=== PATIENT | male | born 1965 | race Caucasian/White ===

== ENCOUNTER 2016-09-13 12:52 | Observation (INO) | payer BC ==
[~2016-09-13] VITALS: Ht 161.3 cm; Wt 79.8 kg
[~2016-09-13 12:52] MED LIST: ASPI81TA28 PO; HYDR-5688 PO; LPR25 PO; NITR0.4S UT; ROSU40TA PO
--- NOTE | 2016-09-13 13:43 | EMERGENCY ROOM VISIT NOTE ---
History Report prepared by Saúl: Angel Chung Under the Supervision of: Dr. Lois Matt D.O. First contact with patient: 13:28 Chief Complaint: TACHYCARDIA Stated Complaint: HEART BEATING FAST/PALPITATIONS, INDIGESTION Nursing Triage Summary: Pt reportsd palpitations and feelign like his heart was racing around 1130. Denies history of irregular heart beat. Pt reports indigestion. Denies any other symptoms. History of Present Illness The patient is a 51 year old male who presents to the Emergency Room with complaints of persistent tachycardia beginning about 2 hours ago. 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 He notes he felt fine prior to the time lock expert. He indicates that his has happened before but only for a couple of seconds. The patient reports he also felt dizzy at times which is not worsened with sitting or standing, as well as some sinus pressure and nausea. He denies any chest pain or shortness of breath. However, the patient did describe indigestion like chest pressure. The patient reports taking his medications regularly, and is on a blood thinner. He adds that he had a CABG in 2001. Source of History: patient Onset: about 2 hours ago Position: chest Quality: other (tachycardia) Timing: other (persistent) Associated Symptoms: + nausea, No SOB, No chest pain Note: Patient reports also having dizziness and sinus pressure. Review of Systems See HPI for pertinent positives & negatives. A total of 10 systems reviewed and were otherwise negative. Past Medical & Surgical Medical Problems: (1) History of atrial fibrillation (2) non cardiac chest pain Surgical Problems: (1) History of coronary artery bypass graft Family History No pertinent family history stated. Social History Smoking Status: Former Smoker Alcohol Use: none Drug Use: none Marital Status: Housing Status: lives with family Occupation Status: employed Current/Historical Medications Scheduled Aspirin (Aspirin Ec), 325 MG PO DAILY Metoprolol Tartrate (Lopressor), 25 MG PO BID Nitroglycerin (Nitrostat), 0.4 MG UT PRN Rosuvastatin Calcium (Crestor), 40 MG PO HS Allergies Coded Allergies: No Known Allergies (Verified , 09/13/16) Physical Exam Vital Signs Date Time Temp Pulse Resp B/P Pulse Ox O2 Delivery O2 Flow Rate FiO2 09/13/16 16:30 96 110/71 09/13/16 15:12 130 18 108/72 96 Room Air 09/13/16 14:13 94 18 114/75 96 Room Air 09/13/16 14:07 102 09/13/16 13:22 97 Room Air 09/13/16 12:58 36.8 106 20 117/75 95 Room Air Physical Exam HEENT: Head - normocephalic and atraumatic Pupils are equal, round, and reactive to light. Extraocular eye muscles are intact, and sclera are anicteric. Nose - moist nasal mucosa without discharge. Mouth - moist buccal mucosa. Oropharynx is nonerythematous and there is no tonsillar exudate or edema noted. Neck: Supple; no JVD, nuchal rigidity, cervical lymphadenopathy, or auscultated bruits. Heart: Tachycardic rate and irregularly irregular rhythm. There is a normal S1 and S2 with no murmurs, clicks, or gallops appreciated. Lungs: Clear to auscultation bilaterally with no wheezes, rales, or rhonchi. Abdomen: Soft, completely nontender, nondistended, with good bowel sounds. There are no palpable pulsatile masses or hepatosplenomegaly. There is no guarding, rigidity, or rebound noted. Extremities: No evidence of cyanosis, clubbing, or edema. There are easily palpable peripheral pulses. Skin: warm and dry with good turgor and no rashes. Medical Decision & Procedures ER Provider Diagnostic Interpretation: Radiology results as stated below per my review and the radiologist's interpretation: CHEST ONE VIEW PORTABLE FINDINGS: There are median sternotomy wires and clips from bypass grafting. Lung volumes are at the lower limits of normal. There is no evidence of pulmonary edema. Linear left basilar opacity is suggestive of atelectasis. No pneumothorax or pleural effusion is present. IMPRESSION: 1. No acute cardiopulmonary findings. 2. Linear left basilar opacity suggestive of atelectasis. Electronically signed by: Jonathan Smith M.D. 09/13/2016 2:10 PM Dictated Date/Time: 09/13/2016 2:09 PM Laboratory Results 09/13/16 13:19 09/13/16 13:19 Test 09/13/16 13:19 Red Blood Count 4.96 M/uL (4.7-6.1) Mean Corpuscular Volume 92.5 fL (80-100) Mean Corpuscular Hemoglobin 31.3 pg (25-34) Mean Corpuscular Hemoglobin Concent 33.8 g/dl (32-36) RDW Standard Deviation 47.3 fL (36.4-46.3) RDW Coefficient of Variation 14.0 % (11.5-14.5) Mean Platelet Volume 9.9 fL (7.4-10.4) Prothrombin Time 9.8 SECONDS (9.0-12.0) Prothromb Time International Ratio 0.9 (0.9-1.1) Anion Gap 10.0 mmol/L (3-11) Est Creatinine Clear Calc Drug Dose 82.7 ml/min Estimated GFR () 102.3 Estimated GFR (Non- 88.3 BUN/Creatinine Ratio 18.3 (10-20) Estimated Average Glucose 128 mg/dl Hemoglobin A1c 6.1 % (4.5-5.6) Calcium Level 8.3 mg/dl (8.5-10.1) Total Creatine Kinase 127 U/L (39-308) Creatine Kinase MB 0.5 ng/ml (0.5-3.6) Creatine Kinase MB Ratio 0.4 (0-3.0) Pro-B-Type Natriuretic Peptide 108 pg/ml (0-900) Thyroid Stimulating Hormone (TSH) 1.250 uIu/ml (0.300-4.500) Laboratory results per my review. Medications Administered Medications (Trade) Dose Ordered Sig/Demarcus Route Start Time Stop Time Status Last Admin Dose Admin Heparin Sodium/ Dextrose (Heparin 25,000 Unit/500ml D5W) 25,000 unit STK-MED ONCE .ROUTE 09/13/16 15:50 09/13/16 15:51 DC 09/13/16 15:58 25,000 UNIT Procedure Medications Ordered: 1521: Ordered Heparin Sodium/Dextrose 1 ea N/A. ECG Indication: tachycardia Rate (beats per minute): 133 Rhythm: atrial fibrillation (with RVR) Findings: no acute ischemic change, no ectopy ED Course 1331: Past medical records reviewed. The patient was evaluated in room B7. A complete history and physical exam was performed. An IV lock was initiated and labs were drawn as above. A twelve-lead EKG was obtained as described above. The patient had chest x-ray as described above. 1415: The patient's heart rate had come down on its own but he remains in A. fib. He is sleeping at this time. 1510: I reassessed the patient. His heart rate is down but he is still in afib. I will put him on a heparin drip. 1520: Discussed the patient's case with Dr. Lau. The patient will be evaluated for further management. Medical Decision The patient is a 51 year old male who presents to the Emergency Room with complaints of persistent tachycardia beginning about 2 hours ago. Differential Diagnoses: GERD, cardiac ischemia, atrial fibrillation with RVR, CHF, and hyperthyroidism. Laboratory Interpretations: Normal WBC, stable H&H; normal renal function; glucose of 136; normal TSH; negative cardiac enzymes; normal coags. This is a 51-year-old male patient with a history of previous coronary artery bypass grafting years ago. He developed some palpitations and indigestion today. He presented to the emergency department with new onset A. fib with RVR. Cardiac enzymes were negative. There are no signs of ischemia. The heart rate came down on its own but he remains in atrial fibrillation. He was heparinized. When the patient presented years ago with cardiac ischemia and had to undergo CABG, his presenting symptom was indigestion. There was concern that he would require further cardiac evaluation. The patient's indigestion did not return while he was here in the emergency department. Consults Time Called: 1509 Consulting Physician: Dr. Lua, [facility] [place] Returned Call: 1520 Discussed the patient's case with Dr. Lua. The patient will be evaluated for further management. Impression Primary Impression: Atrial fibrillation with RVR Additional Impression: Chest pressure Scribe Attestation The scribe's documentation has been prepared under my direction and personally reviewed by me in its entirety. I confirm that the note above accurately reflects all work, treatment, procedures, and medical decision making performed by me. Departure Information Dispostion Being Evaluated By Hospitalist Referrals Criss Zamora C.R.NRadha (PCP) Patient Instructions [facility] Problem Qualifiers
[2016-09-13 13:45] LABS: HEMATOCRIT 45.9 % (42-52); MEAN CELL VOLUME 92.5 fL (80-100); MEAN CORPUSCULAR HEMOGLOBIN 31.3 pg (25-34); MEAN CORPUSCULAR HGB CONC 33.8 g/dl (32-36); MEAN PLATELET VOLUME 9.9 fL (7.4-10.4); PLATELET COUNT 253 K/uL (130-400); RED BLOOD COUNT 4.96 M/uL (4.7-6.1)
[2016-09-13 14:09] LABS: BLOOD UREA NITROGEN 18 mg/dl (7-18); BUN/CREATININE RATIO 18.3 (10-20); CALCIUM 8.3 mg/dl (8.5-10.1); CARBON DIOXIDE 28 mmol/L (21-32); CHLORIDE 107 mmol/L (98-107); CREATININE 0.98 mg/dl (0.60-1.40); GLUCOSE 136 mg/dl (70-99); POTASSIUM 4.1 mmol/L (3.5-5.1); SODIUM 145 mmol/L (136-145)
[2016-09-13] MEDS ORDERED: ASPI325T39 PO (14:09)
--- NOTE | 2016-09-13 14:11 | DIAGNOSTIC IMAGING REPORT ---
CHEST ONE VIEW PORTABLE CLINICAL HISTORY: Atrial fibrillation with rapid ventricular response. COMPARISON STUDY: Chest radiograph February 24, 2012. FINDINGS: There are median sternotomy wires and clips from bypass grafting. Lung volumes are at the lower limits of normal. There is no evidence of pulmonary edema. Linear left basilar opacity is suggestive of atelectasis. No pneumothorax or pleural effusion is present. IMPRESSION: 1. No acute cardiopulmonary findings. 2. Linear left basilar opacity suggestive of atelectasis. Electronically signed by: Jonathan Smith M.D. 09/13/2016 2:10 PM Dictated Date/Time: 09/13/2016 2:09 PM
[2016-09-13 14:13] LABS: INR 0.9 (0.9-1.1); PROTHROMBIN TIME (PATIENT) 9.8 SECONDS (9.0-12.0)
[2016-09-13 14:20] LABS: CKMB/CK RATIO 0.4 (0-3.0)
[2016-09-13] MEDS ORDERED: HEPARIN 25000 UNIT/500 ML D5W ONE (15:50)
[2016-09-13] MEDS ORDERED: MoRPHine SULFATE 2 MG/ML CARP IV PRN (17:15)
[2016-09-13] MEDS ORDERED: MAGNESIUM HYDROXIDE SUSP 30 ML UDC PO PRN (17:15)
[2016-09-13] MEDS ORDERED: NITROGLYCERIN 0.4 MG SL PER TAB CHARGE SL PRN (17:15)
[2016-09-13] MEDS ORDERED: ONDANSETRON INJ 2 MG/ML 2 ML VIAL IV PRN (17:15)
[2016-09-13] MEDS ORDERED: ACETAMINOPHEN 325 MG TAB PO PRN (17:15)
[2016-09-13] MEDS ORDERED: NITROGLYCERIN 0.4 MG SL PER TAB CHARGE UT SCH (17:15)
[2016-09-13] MEDS ORDERED: GI COCKTAIL PO PRN (17:30)
--- NOTE | 2016-09-13 17:38 | History and Physical ---
History & Physical Date & Time of Service: Sep 13, 2016 at 17:19 Chief Complaint: Heart Beating Fast/Palpitations, Indigestion Primary Care Physician: Criss Zamora C.R.N.P History of Present Illness Source: patient 51 y/o M c/o of heartburn and palpitations. Pt states he was having a usual day today. 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 He states he drank a bottle of fruit punch gatorade too quickly and about 15 minutes later had intense heartburn. He then noted that his heart was fluttering. It did not radiate into his UE or jaw. No SOB. When it did not resolve, he came to the ED. Pt notes that he is tired now, but feels otherwise fine. He has had no limitation in his daily work or yard work. Pt does have hx of heartburn/indigestion, but not for some time. Of note, pt had a bypass in 2001 and at that time his sx were severe heartburn. Pt had a cath in 2011 that they report as neg, no stents placed. Pt states he has had heart fluttering before, but does not think he was dx with afib at any time. He does take aspirin 325mg, but this has been since his CT. Pt denies fever, abd pain, n/v/c/d, LE pain or swelling. ROS as noted above, otherwise neg. Past Medical/Surgical History Bypass 2001 HLD Social History Smoking Status: Former Smoker Smokeless Tobacco Use: Yes Alcohol Use: occasionally (with camping trips) Drug Use: none Marital Status: Housing status: lives with family Occupational Status: employed Immunizations History of Influenza Vaccine: No History of Tetanus Vaccine?: No History of Pneumococcal: No History of Hepatitis B Vaccine: Yes Multi-Drug Resistant Organisms History of MDRO: No Allergies Coded Allergies: No Known Allergies (Verified , 09/13/16) Home Medications Scheduled Aspirin (Aspirin Ec), 325 MG PO DAILY Metoprolol Tartrate (Lopressor), 25 MG PO BID Nitroglycerin (Nitrostat), 0.4 MG UT PRN Rosuvastatin Calcium (Crestor), 40 MG PO HS Physical Exam Vital Signs Date Time Temp Pulse Resp B/P Pulse Ox O2 Delivery O2 Flow Rate FiO2 09/13/16 15:12 130 18 108/72 96 Room Air 09/13/16 14:13 94 18 114/75 96 Room Air 09/13/16 14:07 102 09/13/16 13:22 97 Room Air 09/13/16 12:58 36.8 106 20 117/75 95 Room Air General Appearance: WD/WN, no apparent distress Head: normocephalic, atraumatic Respiratory/Chest: normal breath sounds, no respiratory distress Cardiovascular: no edema, + pertinent finding (regular rate, irregular rhythm) Abdomen/GI: non tender, soft Extremities/Musculoskelatal: no calf tenderness, no pedal edema Neurologic/Psych: alert, normal mood/affect Skin: normal color, warm/dry Diagnostics Laboratory Results Results Past 24 Hours Test 09/13/16 13:19 Range/Units White Blood Count 8.00 4.8-10.8 K/uL Red Blood Count 4.96 4.7-6.1 M/uL Hemoglobin 15.5 14.0-18.0 g/dL Hematocrit 45.9 42-52 % Mean Corpuscular Volume 92.5 80-100 fL Mean Corpuscular Hemoglobin 31.3 25-34 pg Mean Corpuscular Hemoglobin Concent 33.8 32-36 g/dl RDW Standard Deviation 47.3 36.4-46.3 fL RDW Coefficient of Variation 14.0 11.5-14.5 % Platelet Count 253 130-400 K/uL Mean Platelet Volume 9.9 7.4-10.4 fL Prothrombin Time 9.8 9.0-12.0 SECONDS Prothromb Time International Ratio 0.9 0.9-1.1 Activated Partial Thromboplast Time 24.7 21.0-31.0 SECONDS Partial Thromboplastin Ratio 1.0 Sodium Level 145 136-145 mmol/L Potassium Level 4.1 3.5-5.1 mmol/L Chloride Level 107 98-107 mmol/L Carbon Dioxide Level 28 21-32 mmol/L Anion Gap 10.0 3-11 mmol/L Blood Urea Nitrogen 18 7-18 mg/dl Creatinine 0.98 0.60-1.40 mg/dl Est Creatinine Clear Calc Drug Dose 82.7 ml/min Estimated GFR () 102.3 Estimated GFR (Non- 88.3 BUN/Creatinine Ratio 18.3 10-20 Random Glucose 136 70-99 mg/dl Calcium Level 8.3 8.5-10.1 mg/dl Total Creatine Kinase 127 39-308 U/L Creatine Kinase MB 0.5 0.5-3.6 ng/ml Creatine Kinase MB Ratio 0.4 0-3.0 Troponin I < 0.015 0-0.045 ng/ml Pro-B-Type Natriuretic Peptide 108 0-900 pg/ml Thyroid Stimulating Hormone (TSH) 1.250 0.300-4.500 uIu/ml Diagnostic Radiology CXR neg for acute Normal EKG Impression Assessment and Plan 51 y/o M who was admitted for observation on 09/13 for chest pain. Chest pain: ACS vs GI vs related to afib Hx of severe heartburn feeling with CT in 2001 Trop neg x1, serials pending CXR neg for acute CBC, PRP WNL ECHO pending Lipids, A1c pending Pt follows with Dr. Calvillo if needed GI cocktail PRN Afib: Pt reports hx of fluttering in the past, however is unsure if he carries this dx Initially with RVR, now rate controlled spontaneously Monitor on heparin gtt for now, CHADS score is 1 for HTN if ECHO is neg and A1c WNL Metoprolol PRN ECHO pending Takes aspirin 325mg [employer], will continue HLD: continue statin Smokeless tobacco use: Declines nicotine patch No interest in cessation. "It's the only bad thing I do and I don't want to quit!" Other: Full code Heparin gtt for DVT proph AHA diet Level of Care Telemetry Resuscitation Status FULL RESUSCITATION VTE Prophylaxis VTE Risk Assessment Done? Y/N: Yes Risk Level: Low
[2016-09-13] MEDS ORDERED: METOPROLOL TARTRATE 1 MG/ML VIAL IV PRN (17:45)
[2016-09-13 19:33] VITALS: BP 104/62; PULSE 96; TEMP 36.8; O2SAT 95
[2016-09-13 19:41] VITALS: BP 104/62; PULSE 96; TEMP 36.8; O2SAT 95; Ht 161.3 cm; Wt 79.8 kg
[2016-09-13 19:54] LABS: CHOLESTEROL 264 mg/dl (0-200); CHOLESTEROL/HDL RATIO 5.6; HDL CHOLESTEROL 47 mg/dl; LDL CHOLESTEROL CALCULATED 190 mg/dl; TRIGLYCERIDES 135 mg/dl (0-150); VERY LOW DENSITY LIPOPROT CALC 27 mg/dl
[2016-09-13 20:00] VITALS: O2SAT 95
[2016-09-13] MEDS: NITROGLYCERIN OINT 2% 1GM PACKET EXT SCH (20:00)
[2016-09-13] MEDS ORDERED: ALUMINUM/MAGNESIUM SUSP 72 ML, LIDOCAINE HCL 2% VISCOUS SOLN 24 ML, BARCODE IDENTIFIER ... PO PRN ×2 (20:00)
[2016-09-13] MEDS: METOPROLOL TARTRATE 25 MG TAB PO SCH (20:47)
[2016-09-13] MEDS ORDERED: ROSUVASTATIN CALCIUM 20 MG TAB PO SCH (21:00)
[2016-09-13] MEDS: HEPARIN 25,000 UNIT/500ML D5W 500 ML IV PRN (22:52)
[2016-09-13 23:45] VITALS: BP 97/65; PULSE 58; TEMP 36.7; O2SAT 96
[2016-09-14 00:35] LABS: PARTIAL THROMBOPLASTIN RATIO 1.5
[2016-09-14] MEDS: HEPARIN 25,000 UNIT/500ML D5W 500 ML IV PRN (00:58)
[2016-09-14] MEDS ORDERED: IV FLUIDS COMPLETED PRN (01:00)
[2016-09-14] MEDS ORDERED: HEPARIN IV BOLUS 5,000 UNIT in SYRINGE 0 ML IV ONE (01:00)
[2016-09-14] MEDS: NITROGLYCERIN OINT 2% 1GM PACKET EXT SCH ×2 (02:00→08:35)
[2016-09-14 04:28] VITALS: BP 93/64; PULSE 56; TEMP 36.4; O2SAT 94
[2016-09-14 06:36] LABS: ESTIMATED AVERAGE GLUCOSE 128 mg/dl; HA1C FLAG Normal (Normal)
[2016-09-14] MEDS ORDERED: PERFLUTREN LIPID MICROSPHERE (DEFINITY) IV ONE (07:02)
[2016-09-14 07:22] VITALS: BP 113/72; PULSE 77; TEMP 36.6; O2SAT 95
[2016-09-14 08:00] LABS: PARTIAL THROMBOPLASTIN RATIO 2.9
[2016-09-14] MEDS: METOPROLOL TARTRATE 25 MG TAB PO SCH (08:35)
--- NOTE | 2016-09-14 08:52 | ECHOCARDIOGRAM REPORT ---
*NOTICE TO RECEIVING REPUBLICAN AGENCY This information is strictly Confidential and protected under [place] law. [place] law prohibits you from making any further disclosure of this information unless further disclosure is expressly permitted by the written consent of the person to whom it pertains or is authorized by law. A general authorization for the release of medical or other information is not sufficient for this purpose. Hospital accepts no responsibility if the information is made available to any other person, INCLUDING THE PATIENT. Interpretation Summary * Name: LAUREL DE LEÓN Study Date: 09/14/2016 06:29 AM BP: 113/72 mmHg * Patient Location: .[facility]\S\N284\S\2 HR: 82 * : 1965 (M/d/yyyy) Gender: Male Height: 63 in * Age: 51 yrs Ethnicity: [place] Weight: 177 lb * Ordering Physician: Rosita Lua * Referring Physician: Self, Referred * Performed By: Mayda Gamboa RDCS * * Reason For Study: AFIB * BSA: 1.8 m2 * Grossly normal valvular structure and function. * -- Conclusions -- * The left ventricle is normal in size. * Left ventricular systolic function is normal. * Ejection Fraction = 65-70%. * The right ventricular systolic function is normal. * The left atrium is borderline dilated. * The right atrium is borderline dilated. * Grossly normal valvular structure and function. Procedure Details * A contrast injection of Definity was performed to improve assessment of LV function. * Contrast was injected into an intravenous site in the left arm. * One vial of Definity ultrasound contrast was diluted in normal saline to a total volume of 10 ml. A total of '2' ml of solution was administered during imaging. * Lot # [id number] of Definity utilized for procedure. * Expiration date SEP 01. * The attending nurse who injected the contrast agent was TOM ROCHA RN. Left Ventricle * The left ventricle is normal in size. * There is normal left ventricular wall thickness. * Ejection Fraction = 65-70%. * Left ventricular systolic function is normal. * The left ventricular wall motion is normal. Right Ventricle * The right ventricle is normal size. * The right ventricular systolic function is normal. Atria * The left atrium is borderline dilated. * The right atrium is borderline dilated. * The interatrial septum is intact with no evidence for an atrial septal defect. Mitral Valve * The mitral valve is not well visualized. * Significant mitral regurgitation is absent. Tricuspid Valve * The tricuspid valve anatomy is normal. * Significant tricuspid regurgitation is absent. Aortic Valve * The aortic valve is tricuspid. The leaflet thickness if normal. There is no aortic stenosis, and no significant insufficiency. * Aortic stenosis is absent. * There is no significant aortic regurgitation. Pulmonic Valve * The pulmonary valve is inadequately visualized, but the Doppler data is adequate for interpretation. * There is no significant pulmonary regurgitation. Great Vessels * The aortic root and proximal ascending aorta are normal sized. Pericardium/Pleural * There is no pericardial effusion. MMode 2D Measurements and Calculations IVSd 1.5 cm IVSs 1.7 cm LVIDd 3.8 cm LVIDs 2.3 cm LVPWd 1.4 cm LVPWs 1.9 cm IVS/LVPW 1.1 FS 40.5 % EDV(Teich) 61.9 ml ESV(Teich) 17.3 ml EF(Teich) 72.0 % EDV(cubed) 54.9 ml ESV(cubed) 11.5 ml EF(cubed) 79.0 % % IVS thick 11.8 % % LVPW thick 40.4 % LV mass(C)d 201.5 grams LV mass(C)dI 109.8 grams/m\S\2 LV mass(C)s 157.9 grams LV mass(C)sI 86.0 grams/m\S\2 SV(Teich) 44.6 ml SI(Teich) 24.3 ml/m\S\2 SV(cubed) 43.3 ml SI(cubed) 23.6 ml/m\S\2 Ao root diam 3.1 cm Ao root area 7.4 cm\S\2 LA dimension 4.0 cm LA/Ao 1.3 LVAd ap4 23.4 cm\S\2 LVLd ap4 7.1 cm EDV(MOD-sp4) 65.0 ml LVAs ap4 12.6 cm\S\2 LVLs ap4 6.1 cm ESV(MOD-sp4) 21.5 ml EF(MOD-sp4) 66.9 % LVAd ap2 17.1 cm\S\2 LVLd ap2 6.2 cm EDV(MOD-sp2) 38.8 ml LVAs ap2 8.5 cm\S\2 LVLs ap2 5.3 cm ESV(MOD-sp2) 11.8 ml EF(MOD-sp2) 69.6 % SV(MOD-sp4) 43.5 ml SI(MOD-sp4) 23.7 ml/m\S\2 SV(MOD-sp2) 27.0 ml SI(MOD-sp2) 14.7 ml/m\S\2 Doppler Measurements and Calculations MV E max eli 79.5 cm/sec MV dec time 0.15 sec Ao V2 max 112.9 cm/sec Ao max PG 5.1 mmHg Ao max PG (full) 2.2 mmHg LV V1 max PG 2.9 mmHg LV V1 max 85.9 cm/sec
[2016-09-14] MEDS ORDERED: ASPIRIN 325 MG ECTAB PO SCH (09:00)
--- NOTE | 2016-09-14 11:34 | Discharge Instructions ---
Discharge Instructions Date of Service September 14, 2016. Admission Reason for Admission: Chest Pressure Discharge Discharge Diagnosis / Problem: paroxysmal Atrial fibrillation Discharge Goals Goal(s): Diagnostic testing, Therapeutic intervention Activity Recommendations Activity Limitations: resume your previous activity . Current Hospital Diet Patient's current hospital diet: AHA Diet (Heart Healthy) Discharge Diet Recommended Diet: AHA Diet (Heart Healthy) Pending Studies Studies pending at discharge: no Laboratory Results Hemoglobin A1c Test 09/13/16 13:19 Range/Units Estimated Average Glucose 128 mg/dl Hemoglobin A1c 6.1 H 4.5-5.6 % Lipid Panel Test 09/13/16 19:15 Range/Units Triglycerides Level 135 0-150 mg/dl Cholesterol Level 264 H 0-200 mg/dl HDL Cholesterol 47 mg/dl Cholesterol/HDL Ratio 5.6 LDL Cholesterol, Calculated 190 mg/dl Medical Emergencies . Who to Call and When: Medical Emergencies: If at any time you feel your situation is an emergency, please call 911 immediately. . Non-Emergent Contact Non-Emergency issues call your: Primary Care Provider . . "Provider Documentation" section prepared by Washington Avitia. . VTE Core Measure Inpt VTE Proph given/why not?: Unfractionated heparin SQ
[2016-09-14 11:40] VITALS: BP 102/67; PULSE 72; TEMP 36.7; O2SAT 94
[2016-09-14 11:43] VITALS: BP 102/67; PULSE 72; TEMP 36.7; O2SAT 94
[2016-09-14] MEDS ORDERED: NITROGLYCERIN 2% OINTMENT 30GM TUBE EXT SCH (14:00)
--- NOTE | 2016-09-14 14:53 | CARDIOLOGY CONSULTATION ---
DATE OF CONSULTATION: 09/14/2016 REFERRING PHYSICIAN: Dr. Washington Avitia. REASON FOR CONSULTATION: Atrial fibrillation. HISTORY OF PRESENT ILLNESS: This is a 51-year-old male gentleman who has arteriosclerotic vascular disease including previous coronary artery bypass surgery in 2001 and carotid endarterectomy in 2013. The patient did follow with Dr. Calvillo until approximately 3 years ago when he was lost to follow up. He has been doing well and has been well cared for by his primary care physician during that time. He was admitted with atrial fibrillation. He drank a bottle of fruit punch Gatorade and he felt uncomfortable and developed fluttering in his chest. He presented with atrial fibrillation into our ER. He was given additional beta sharon and started on heparin. This morning, he spontaneously converted to normal sinus rhythm where he has remained. He has no complaints presently and feels well. He actually would like to go home. His cardiac troponins have been negative x3 since admission. ALLERGIES: No known medical allergies. PAST MEDICAL HISTORY: Per the history of chief complaint, the patient has early atherosclerotic vascular disease and underwent coronary artery bypass surgery in 2001 and then carotid endarterectomy in 2013. According to records in 2011, he had a cardiac catheterization that showed his bypass grafts to be patent. He has no history of diabetes or hypertension. SOCIAL HISTORY: The patient is a former smoker, but continues to use snuff. He is and lives with his family. FAMILY MEDICAL HISTORY: Noncontributory. REVIEW OF SYSTEMS: A 10-point review of systems is negative except for the history of chief complaint. PHYSICAL EXAMINATION: GENERAL: He is alert and oriented in no acute distress. VITAL SIGNS: Blood pressure is 110/70 and pulse is regular at 70 beats per minute. He is in sinus rhythm. HEENT: He is normocephalic. Pupils are equal and reactive to light. Extraocular muscles are intact bilaterally. NECK: The neck veins are flat. Carotids have good upstrokes bilaterally without bruits. Thyroid is nonpalpable. RESPIRATORY: Breath sounds equal bilaterally and clear to auscultation. CARDIOVASCULAR: Heart has a regular rhythm. Normal S1 and S2. No S3 or S4. No cardiac rubs or murmurs. GASTROINTESTINAL: Abdomen is soft and nontender without organomegaly. EXTREMITIES: Free of edema, digit clubbing, or cyanosis. NEUROLOGIC: Grossly intact. SKIN: Warm to touch. LYMPH NODES: Negative to palpation. IMPRESSION: 1. Paroxysmal atrial fibrillation. 2. Previous coronary artery bypass surgery and left carotid endarterectomy. RECOMMENDATIONS: The patient has been well controlled with beta blockers and aspirin for many years. I believe his BOAZ score is 0 as he does not admit to having hypertension. He has also never had diabetes or congestive heart failure. I think the risks versus benefits would favor keeping him on aspirin at this time. He will also continue his metoprolol and I encouraged him to have followup with us even if it is on an annual basis. He can take an extra dose of metoprolol as needed if he develops heart palpitations or arrhythmias again. We will have followup with him as an outpatient and I will make arrangements for that. IRVIN
--- NOTE | 2016-09-14 16:35 | Discharge Summary ---
Discharge Summary Date of Service September 14, 2016. Discharge Summary Admission Date: Sep 13, 2016 at 17:18 Discharge Date: September 14, 2016 Discharge Disposition: Home Principal Diagnosis: afib with spontaneus conversion to nsr Immunizations: Have You Had Influenza Vaccine: No History of Tetanus Vaccine?: No History of Pneumococcal: No History of Hepatitis B Vaccine: Yes Consultations: Dr [facility] for [facility] Cardiology Medication Reconciliation Continued Medications: Aspirin (Aspirin Ec) 325 Mg Tab 325 MG PO DAILY Metoprolol Tartrate (Lopressor) 25 Mg Tab 25 MG PO BID, TAB Nitroglycerin (Nitrostat) 0.4 Mg Sub 0.4 MG UT PRN, BTL Rosuvastatin Calcium (Crestor) 40 Mg Tab 40 MG PO HS, TAB Discharge Exam Review of Systems: Constitutional: No chills, No fever Respiratory: No cough, No sputum Cardiovascular: No chest pain, No orthopnea Abdomen: No nausea, No pain Genitourinary - Female: No dysuria Genitourinary - Male: No dysuria, No hematuria Physical Exam: General Appearance: WD/WN, no apparent distress Neck: supple, no JVD Respiratory/Chest: chest non-tender, lungs clear, normal breath sounds Cardiovascular: regular rate, rhythm, no murmur Abdomen / GI: normal bowel sounds, non tender, soft Extremities: no pedal edema, normal range of motion Hospital Course 51 M with short period of afib, negative ischemic workup, normal echo, seen by cardiology and no new recommendations, will continue b Adrian and follow up with [facility] cardiology. Dr Lau instructed him to take additional metoprolol if needed for palpitations Total Time Spent: Greater than 30 minutes This includes examination of the patient, discharge planning, medication reconciliation, and communication with other providers. Discharge Instructions Please refer to the electronic Patient Visit Report (Discharge Instructions) for additional information.
== END 2016-09-14 12:44 | disposition home or self-care (01) ==
LOC: ENRESERVTM → ENRESERVDT → C.EDB 12:54 → C.MED 17:18
PROVIDERS: ADMIT Family Medicine; ATTEND Internal Medicine
DX: I48.91 Unspecified atrial fibrillation (principal); Z95.1 Presence of aortocoronary bypass graft; Z87.891 Personal history of nicotine dependence; R07.89 Other chest pain; Z79.82 Long term (current) use of aspirin; Z79.899 Other long term (current) drug therapy; E78.5 Hyperlipidemia, unspecified

== ENCOUNTER → 2017-06-18 | Day surgery (SDC) | payer BC ==
[2017-06-04 08:08] VITALS: Ht 162.6 cm; Wt 75.0 kg
[~2017-06-18] VITALS: Ht 162.6 cm; Wt 75.0 kg
[~2017-06-18] MED LIST changes: +ASPI-470 PO; -ASPI81TA28 PO; +ELIQUIS PO; -HYDR-5688 PO; +LIDOCAINE HCL 2% 2 ML VIAL (20MG/ML) ONE; -LPR25 PO; +METO25TA56 PO; +MIDAZOLAM HCL 1 MG/ML 2ML VIAL ONE; -NITR0.4S UT; +ONDANSETRON INJ 2 MG/ML 2 ML VIAL ONE; +PROPOFOL IV EMULSION 10 MG/ML 20 ML VIAL IV ONE; +SODIUM CHLORIDE 0.9% 500ML 500 ML IV ONE
--- NOTE | 2017-06-18 10:22 | Endo History and Physical ---
History & Physical Date of Service: Jun 18, 2017. Chief Complaint: HISTORY OF POLYPS Referring Physician: LADARIUS TENORIO History of Present Illness 52 yo CM who presents for colonoscopy secondary to history of colon polyps. Past Medical History Diabetes, Arthritis, Fractures, CABG, Heart Disease, [place] Past Surgical History Hx Cardiac Surgery: Yes (HEART CATH/NO STENTS, CABG-4 VESSELS, LEFT CAROTID ENDARTERECTOMY) Hx Internal Defibrillator: No Hx Pacemaker: No Hx Abdominal Surgery: No Hx of Implantable Prosthesis: No Hx Post-Op Nausea and Vomiting: No Hx Cancer Surgery: No Hx Thoracic Surgery: No Hx Orthopedic: Yes (RT/LEFT CTR, RT KNEE MENISCUS REPAIR) Hx Urinary Tract Surgery: No Family History Polyp Social History Smoking Status: Former Smoker Hx Substance Use: No Hx Alcohol Use: Yes (RARELY) Allergies Coded Allergies: No Known Allergies (Verified , 06/18/17) Current Medications Reported Home Medications Medications Dose Route/Sig Max Daily Dose Days Date Category Dose Instructions Aspirin 325 Mg Tab 1 Tab PO QAM 06/04/17 Reported Lopressor (Metoprolol Tartrate) 25 Mg Tab 2 Tab PO BID 06/04/17 Reported [Eliquis] 1 Tab PO BID 06/04/17 Reported UNSURE OF DOSE Crestor (Rosuvastatin Calcium) 40 Mg Tab 40 Mg PO HS 09/25/13 Reported Vital Signs Weight (Kilograms): 75 Height (Feet): 5 Height (Inches): 4 Date Time Temp Pulse Resp B/P (MAP) Pulse Ox O2 Delivery O2 Flow Rate FiO2 06/18/17 10:07 37.0 61 18 136/72 (93) 97 Room Air Physical Exam General Appearance: WD/WN, no apparent distress Respiratory/Chest: Auscultation: breath sounds normal Cardiovascular: Heart Auscultation: RRR Abdomen: Bowel Sounds: normal Inspection & Palpation: soft, non-distended, no tenderness, guarding & rebound Assessment and Plan Assessment: 52 yo CM who presents for colonoscopy secondary to history of colon polyps. Plan: Proceed with Colonoscopy.
--- NOTE | 2017-06-18 11:57 | GI REPORT ---
Procedure Date: 06/18/2017 11:14 AM Procedure: Colonoscopy Indications: Screening for colorectal malignant neoplasm Medicines: Monitored Anesthesia Care Complications: No immediate complications. Estimated Blood Loss: Estimated blood loss: none. Procedure: Pre-Anesthesia Assessment: - Prior to the procedure, a History and Physical was performed, and patient medications and allergies were reviewed. The patient's tolerance of previous anesthesia was also reviewed. The risks and benefits of the procedure and the sedation options and risks were discussed with the patient. All questions were answered, and informed consent was obtained. Prior Anticoagulants: The patient last took aspirin 3 days and Eliquis (apixaban) 3 days prior to the procedure. ASA Grade Assessment: III - A patient with severe systemic disease. After reviewing the risks and benefits, the patient was deemed in satisfactory condition to undergo the procedure. After I obtained informed consent, the scope was passed under direct vision. Throughout the procedure, the patient's blood pressure, pulse, and oxygen saturations were monitored continuously. The scope was introduced through the anus and advanced to the terminal ileum. The colonoscopy was performed without difficulty. The patient tolerated the procedure well. The quality of the bowel preparation was good. The terminal ileum, ileocecal valve, appendiceal orifice, and rectum were photographed. Findings: The perianal and digital rectal examinations were normal. Three sessile polyps were found in the transverse colon and ascending colon. The polyps were 4 to 7 mm in size. These polyps were removed with a hot snare. Resection and retrieval were complete. Multiple small-mouthed diverticula were found in the sigmoid colon. Non-bleeding internal hemorrhoids were found during retroflexion. The hemorrhoids were small. Impression: - Three 4 to 7 mm polyps in the transverse colon and in the ascending colon, removed with a hot snare. Resected and retrieved. - Diverticulosis in the sigmoid colon. - Non-bleeding internal hemorrhoids. Recommendation: - Resume previous diet. - Continue present medications. - Repeat colonoscopy for surveillance based on pathology results. - Return to primary care physician as previously scheduled. Chaitanya Jackson DO 06/18/2017 11:57:11 AM This report has been signed electronically. Note Initiated On: 06/18/2017 11:14 AM I attest to the content of the Intraoperative Record and orders documented therein, exceptions below
--- NOTE | 2017-06-18 11:58 | Discharge Instructions ---
Endoscopy Patient Instructions Date / Procedure(s) Performed Jun 18, 2017. Colonoscopy Allergy Information Coded Allergies: No Known Allergies (Verified , 06/18/17) Discharge Date / Findings Jun 18, 2017. Colon polyps Diverticulosis Internal hemorrhoids Medication Instructions Stopped Medication(s): ASPIRIN AND ELIQUIS 06-16-17 OK to resume all medications today as prescribed Reported Home Medications Medications Dose Route/Sig Max Daily Dose Days Date Category Dose Instructions Aspirin 325 Mg Tab 1 Tab PO QAM 06/04/17 Reported Lopressor (Metoprolol Tartrate) 25 Mg Tab 2 Tab PO BID 06/04/17 Reported [Eliquis] 1 Tab PO BID 06/04/17 Reported UNSURE OF DOSE Crestor (Rosuvastatin Calcium) 40 Mg Tab 40 Mg PO HS 09/25/13 Reported Provider Instructions Activity Restrictions - No exercising or heavy lifting for 24 hours. - Do not drink alcohol the day of the procedure. - Do not drive a car or operate machinery until the day after the procedure. - Do not make any important decisions or sign important papers in 24 hours after the procedure. Following Day: - Return to full activity which may include returning to work/school. Diet Start your diet with liquids and light foods (jello, soup, juice, toast). Then eat your usual diet if not nauseated. Treatment For Common After Affects For mild abdominal pain, bloating, or excessive gas: - Rest - Eat lightly - Lie on right side Follow-Up Information Follow-up with LADARIUS TENORIO as scheduled Anesthesia Information What You Should Know You have had a procedure that required some medicine to reduce anxiety and discomfort. This treatment is called moderate sedation. After receiving the treatment, you may be sleepy, but you will be able to breathe on your own. The effects of the treatment may last for several hours. Follow these instructions along with Activity/Diet recommendations noted above: * Do NOT do anything where dizziness or clumsiness would be dangerous. * Rest quietly at home today, then you can be up and about tomorrow. * Have a responsible person stay with you the rest of today. * You may have had an I.V. today. If so, you may take the dressing off later today. Recommendations Call your doctor if: * Trouble breathing * Continuous vomiting for more than 24 hours * Temperature above 101 degrees * Severe abdominal pain or bloating * Pain not relieved by pain medicine ordered * There is increased drainage or redness from any incision * A large amount of rectal bleeding greater than 2-3 tablespoons. (If you had a polyp/s removed or have hemorrhoids, a small amount of blood - from the rectum is to be expected.) * You have any unanswered questions or concerns. IN THE EVENT OF A SERIOUS EMERGENCY, GO TO THE NEAREST EMERGENCY ROOM Your discharge instructions were prepared by provider Chaitanya Jackson. Patient Instructions Signature Page Shiraz [facility] Patient (or Guardian) Signature/Date: I have read and understand the instructions given to me by my caregivers. Caregiver/RN/Doctor Signature/Date: The above-named patient and/or guardian has received patient instructions on this date. + Original Patient Signature Page (only) stays with chart. Please make copy for patient.
[2017-06-18 12:40] VITALS: BP 118/62; PULSE 62; O2SAT 100
--- NOTE | 2017-06-18 13:11 | Anesthesiology Progress Note ---
Anesthesia Post Op Note Date & Time Jun 18, 2017 at 13:11 Vital Signs Pain Intensity: 0 Vital Signs Past 12 Hours Date Time Temp Pulse Resp B/P (MAP) Pulse Ox O2 Delivery O2 Flow Rate FiO2 06/18/17 12:21 60 20 102/58 (73) 98 Room Air 06/18/17 12:05 63 20 95/57 (70) 95 Room Air 06/18/17 10:07 37.0 61 18 136/72 (93) 97 Room Air Notes Mental Status: alert / awake / arousable, participated in evaluation Pt Amnestic to Procedure: Yes Nausea / Vomiting: adequately controlled Pain: adequately controlled Airway Patency, RR, SpO2: stable & adequate BP & HR: stable & adequate Hydration State: stable & adequate Anesthetic Complications: no major complications apparent
== END | disposition home or self-care (01) ==
LOC: C.GI 09:49
PROVIDERS: ATTEND Internal Medicine
DX: Z12.11 Encounter for screening for malignant neoplasm of colon (principal); D12.3 Benign neoplasm of transverse colon; K64.8 Other hemorrhoids; K57.30 Diverticulosis of large intestine without perforation or abscess without bleeding; I48.91 Unspecified atrial fibrillation; Z86.010 Personal history of colon polyps; Z95.1 Presence of aortocoronary bypass graft; Z87.891 Personal history of nicotine dependence; Z79.82 Long term (current) use of aspirin